=== PATIENT | female | born 2000 | race Two or more races ===

== ENCOUNTER 2024-09-17 09:10 | Emergency (ER) | payer OTHER ==
[~2024-09-17] VITALS: Ht 154.9 cm; Wt 59.9 kg
[2024-09-17] MEDS ORDERED: PRENATA CHEWAB1 EACH PO (09:37)
[2024-09-17] MEDS ORDERED: PEPCID AC10 MG PO (09:37)
[2024-09-17 12:44] LABS: BASO % 0.6 % (0.1-1.2); EOS # 0.22 (0.04-0.54); EOS % 2.1 % (0.7-7.0); HEMATOCRIT 36.8 % (34.1-44.9); HEMOGLOBIN 12.5 g/dL (11.2-15.7); LYMPH # 2.09 (1.18-3.74); LYMPH % 20.1 % (19.3-53.1); MEAN CORPUSCULAR HEMOGLOBIN 29.5 pg (25.6-32.2); MONO # 0.65 (0.24-0.82); MONO % 6.3 % (4.7-12.5); NEUT # 7.32 (1.56-6.13); NEUT % 70.5 % (34.0-71.1); PLATELET COUNT 223 K/uL (163-369); RED BLOOD COUNT 4.24 M/uL (3.93-5.22); RED CELL DISTRIBUTION WIDTH 12.8 % (11.6-14.4)
[2024-09-17 13:31] LABS: ALBUMIN 3.4 gm/dL (3.4-5.0); BILIRUBIN TOTAL 0.26 mg/dL (0.3-1.2); CALCIUM 8.9 mg/dL (8.5-10.1); CREATININE SERUM 0.56 mg/dL (0.55-1.02); GFR 135.37; GLOBULINA 3.7 G/DL (2.4-3.5); POTASSIUM 3.99 mEq/L (3.5-5.1); TOTAL PROTEIN 7.1 gm/dL (6.4-8.2)
[2024-09-17 14:07] LABS: URINE APPEARANCE Turbid; URINE BILIRRUBIN Negative (NEGATIVE); URINE BLOOD Negative; URINE COLOR Yellow; URINE GLUCOSE Negative (NEGATIVE); URINE KETONE Negative (NEGATIVE); URINE LEUKOCYTE Moderate; URINE NITRATE Negative; URINE PROTEIN Trace (NEGATIVE)
[2024-09-17 14:11] LABS: URINE RBC 2.7 uL (0.0-20.8); URINE WBC 184.7 uL (0.0-23.2)
[2024-09-17 14:31] LABS: URINE BACTERIA > 9821.5 uL (0.0-1933)
[2024-09-17 14:34] LABS: URINE CRYSTALS MANY /HPF
[2024-09-17] MEDS ORDERED: CEFTRIAXONE SODIUM 1,000 MG VIAL IM ONE (15:00)
[2024-09-17] MEDS ORDERED: MACROBID 100 M100 MG PO (15:01)
[2024-09-17] MEDS ORDERED: CEFTRIAXONE SODIUM 1,000 MG VIAL ONE (15:10)
[2024-09-17] MEDS ORDERED: LIDOCAINE HCL 1% 10ML VIAL ONE (15:11)
== END 2024-09-17 15:34 | disposition home or self-care (01) ==
LOC: ER 09:10
PROVIDERS: Preventive Medicine Public Health & General Preventive Medicine
DX: N39.0 Urinary tract infection, site not specified (principal); K29.70 Gastritis, unspecified, without bleeding

== ENCOUNTER 2024-10-05 09:23 | Outpatient (CLI) | payer OTHER ==
[~2024-10-05 09:23] MED LIST: MACROBID 100 M100 MG PO; PEPCID AC10 MG PO; PRENATA CHEWAB1 EACH PO
== END 2024-10-05 09:30 | disposition home or self-care (01) ==
LOC: PRENATAL 09:23
PROVIDERS: ATTEND Obstetrics & Gynecology Maternal & Fetal Medicine
DX: O36.80X0 Pregnancy with inconclusive fetal viability, not applicable or unspecified (principal); Z36.82 Encounter for antenatal screening for nuchal translucency; Z14.8 Genetic carrier of other disease; Z3A.13 13 weeks gestation of pregnancy

== ENCOUNTER 2024-12-14 10:44 | Outpatient (CLI) | payer OTHER | END 2024-12-14 10:45 | disposition home or self-care (01) | LOC: PRENATAL 10:44 | PROVIDERS: ATTEND Obstetrics & Gynecology Maternal & Fetal Medicine | DX: O26.849 Uterine size-date discrepancy, unspecified trimester (principal); O44.00 Complete placenta previa NOS or without hemorrhage, unspecified trimester; O43.90 Unspecified placental disorder, unspecified trimester; O26.879 Cervical shortening, unspecified trimester ==

== ENCOUNTER 2025-01-16 07:35 | Outpatient (CLI) | payer OTHER | END 2025-01-16 07:42 | disposition home or self-care (01) | LOC: PRENATAL 07:35 | PROVIDERS: ATTEND Obstetrics & Gynecology Maternal & Fetal Medicine | DX: O26.849 Uterine size-date discrepancy, unspecified trimester (principal); O44.00 Complete placenta previa NOS or without hemorrhage, unspecified trimester; O43.90 Unspecified placental disorder, unspecified trimester; Z3A.29 29 weeks gestation of pregnancy ==

== ENCOUNTER 2025-01-29 20:05 | Inpatient (IN) | payer OTHER ==
[~2025-01-29] VITALS: Ht 152.4 cm; Wt 67.1 kg
[2025-01-29] MEDS ORDERED: RINGERS SOLUTION,LACTATED 1,000 ML IV SCH (20:15)
[2025-01-29 20:43] VITALS: BP 104/67
[2025-01-29 23:27] LABS: URINE APPEARANCE Cloudy; URINE BILIRRUBIN Negative (NEGATIVE); URINE BLOOD Large; URINE COLOR Yellow; URINE GLUCOSE Negative (NEGATIVE); URINE KETONE Negative (NEGATIVE); URINE LEUKOCYTE Large; URINE NITRATE Negative; URINE PROTEIN Negative (NEGATIVE); URINE UROBILINOGEN 0.2 E.U./dl
[2025-01-29 23:30] LABS: URINE EPITHELIAL CELLS 110.6 uL (0.0-38.8); URINE RBC 25.3 uL (0.0-20.8); URINE WBC 1326.6 uL (0.0-23.2)
[2025-01-29 23:35] VITALS: BP 101/66; O2SAT 100
[2025-01-29 23:42] LABS: URINE CAST 0.58 uL (0.0-1.40)
[2025-01-30] VITALS (7 sets, daily range): BP systolic 94–111; BP diastolic 63–70; O2SAT 97–100
[2025-01-30 00:05] LABS: BASO % 0.3 % (0.1-1.2); EOS # 0.27 (0.04-0.54); EOS % 2.6 % (0.7-7.0); LYMPH # 2.14 (1.18-3.74); LYMPH % 20.3 % (19.3-53.1); MEAN PLATELET VOLUME 11.20 fl (9.4-12.4); MONO # 0.78 (0.24-0.82); MONO % 7.4 % (4.7-12.5); NEUT # 7.25 (1.56-6.13); NEUT % 68.8 % (34.0-71.1); RED CELL DISTRIBUTION WIDTH 11.9 % (11.6-14.4)
[2025-01-30] MEDS ORDERED: BETAMETHASONE ACETATE,SOD PHOS 30 MG/5 ML ML IM SCH (00:23)
[2025-01-30] MEDS ORDERED: RINGERS SOLUTION,LACTATED 1,000 ML IV SCH (00:30)
[2025-01-30] MEDS ORDERED: INDOMETHACIN 50 MG CAPSULE PO SCH ×2 (00:34→08:00)
[2025-01-30 00:35] LABS: ALT/SGPT 13.0 U/L (12-78); AST/SGOT 12.0 U/L (15-37); BILIRUBIN TOTAL 0.18 mg/dL (0.3-1.2); BUN CREA RATIO 14.0 (7.0-25.0); CREATININE SERUM 0.59 mg/dL (0.55-1.02); GFR 127.46; GLOBULINA 3.0 G/DL (2.4-3.5); GLUCOSE FASTING 91.0 mg/dL (65-100); OSMOLALITY SERUM 279.0 MOSM/KG (275-295)
[2025-01-30] MEDS ORDERED: MAGNESIUM SULFATE IN WATER 100 ML IV ONE (00:45)
[2025-01-30 01:37] LABS: INR 0.94
[2025-01-30] MEDS ORDERED: AMPICILLIN SODIUM 2,000 MG VIAL IV SCH (01:45)
[2025-01-30] MEDS ORDERED: PNV,CALCIUM 72/IRON/FOLIC ACID 1 TAB TABLET PO SCH (09:00)
[2025-01-30] MEDS ORDERED: SOD FERRIC GLUC COMPLX/SUCROSE 125 MG in 0.9 % SODIUM CHLORIDE 100 ML IV SCH (12:00)
[2025-01-30] MEDS ORDERED: FAMOTIDINE/PF 20 MG/2 ML VIAL IV SCH (17:29)
[2025-01-31] MEDS ORDERED: BETAMETHASONE ACETATE,SOD PHOS 30 MG/5 ML ML IM SCH
[2025-01-31 04:25] VITALS: BP 92/56
[2025-01-31 06:27] VITALS: BP 93/59; O2SAT 98
[2025-01-31 15:24] VITALS: BP 90/55
[2025-01-31 19:52] VITALS: BP 101/71
[2025-01-31] MEDS ORDERED: CEPHALEXIN500 MG PO (21:56)
[2025-02-01] MEDS ORDERED: IBU800 MG PO (16:12)
== END 2025-01-31 21:34 | disposition home or self-care (01) | DRG 832 ==
LOC: OBS/DEL 20:05 → LDR 01-30 01:32
PROVIDERS: ADMIT General Practice; ATTEND General Practice
PROC: BY4FZZZ Ultrasonography of Third Trimester, Single Fetus (ICD-10-PCS; principal; 2025-01-30)
PROC: BU4CZZZ Ultrasonography of Uterus and Ovaries (ICD-10-PCS; 2025-01-30)
PROC: 4A1HXCZ Monitoring of Products of Conception, Cardiac Rate, External Approach (ICD-10-PCS; 2025-01-30)
DX: O60.03 Preterm labor without delivery, third trimester (principal); O23.43 Unspecified infection of urinary tract in pregnancy, third trimester; O26.873 Cervical shortening, third trimester; O26.843 Uterine size-date discrepancy, third trimester; O36.8130 Decreased fetal movements, third trimester, not applicable or unspecified; O43.93 Unspecified placental disorder, third trimester; Z3A.30 30 weeks gestation of pregnancy; O99.013 Anemia complicating pregnancy, third trimester; D64.9 Anemia, unspecified

== ENCOUNTER 2025-02-13 15:46 | Outpatient (CLI) | payer OTHER ==
[~2025-02-13 15:46] MED LIST changes: +CEPHALEXIN500 MG PO; +IBU800 MG PO
[2025-02-13] MEDS ORDERED: ONDANSETRON HCL 2 MG/ML VIAL IV ONE (16:00)
[2025-02-13] MEDS ORDERED: 0.9 % SODIUM CHLORIDE 1,000 ML IV SCH (16:00)
[2025-02-13] MEDS ORDERED: FAMOTIDINE/PF 20 MG/2 ML VIAL IV PUSH ONE (16:00)
[2025-02-13 16:19] VITALS: BP 92/59
[2025-02-13 17:17] LABS: URINE APPEARANCE Turbid; URINE BILIRRUBIN Negative (NEGATIVE); URINE BLOOD Negative; URINE COLOR Dark Yellow; URINE GLUCOSE Negative (NEGATIVE); URINE KETONE Trace (NEGATIVE); URINE LEUKOCYTE Large; URINE NITRATE Negative; URINE PROTEIN 30 (NEGATIVE); URINE UROBILINOGEN 1.0 E.U./dl
[2025-02-13 17:19] LABS: BASO % 0.2 % (0.1-1.2); EOS # 0.13 (0.04-0.54); EOS % 1.5 % (0.7-7.0); LYMPH # 1.43 (1.18-3.74); LYMPH % 16.3 % (19.3-53.1); MEAN PLATELET VOLUME 10.70 fl (9.4-12.4); MONO # 0.63 (0.24-0.82); MONO % 7.2 % (4.7-12.5); NEUT # 6.48 (1.56-6.13); NEUT % 74.0 % (34.0-71.1); RED CELL DISTRIBUTION WIDTH 12.2 % (11.6-14.4)
[2025-02-13 17:22] LABS: URINE EPITHELIAL CELLS 164.3 uL (0.0-38.8); URINE RBC 137.4 uL (0.0-20.8); URINE WBC 315.2 uL (0.0-23.2)
[2025-02-13 17:34] LABS: COVID-19 AG NEGATIVE (NEGATIVE)
[2025-02-13 17:48] LABS: URINE BACTERIA > 9821.5 uL (0.0-1933); URINE CAST 0.14 uL (0.0-1.40)
[2025-02-13 17:49] LABS: ALT/SGPT 13.0 U/L (12-78); AST/SGOT 11.0 U/L (15-37); BILIRUBIN TOTAL 0.26 mg/dL (0.3-1.2); BUN CREA RATIO 13.0 (7.0-25.0); CREATININE SERUM 0.55 mg/dL (0.55-1.02); GFR 138.21; GLOBULINA 2.9 G/DL (2.4-3.5); GLUCOSE FASTING 110.0 mg/dL (65-100); OSMOLALITY SERUM 274.0 MOSM/KG (275-295); TYPE CELLS SQUAMOUS; URINE CRYSTALS FEW /HPF; URINE MUCUS SCANT
[2025-02-13] MEDS ORDERED: FAMOTIDINE/PF 20 MG/2 ML VIAL IV PUSH NR (18:30)
[2025-02-13 19:25] VITALS: BP 108/67
[2025-02-13 20:49] VITALS: BP 108/67
== END 2025-02-13 20:26 | disposition home or self-care (01) ==
LOC: OBS/DEL 15:46
PROVIDERS: ATTEND General Practice
DX: O60.03 Preterm labor without delivery, third trimester (principal); Z3A.32 32 weeks gestation of pregnancy

== ENCOUNTER 2025-03-18 16:05 | Inpatient (IN) | payer OTHER ==
[~2025-03-18] VITALS: Ht 154.9 cm; Wt 68.5 kg
[2025-03-18 15:40] VITALS: BP 110/77
[2025-03-18] MEDS ORDERED: PEPCID AC20 MG PO (16:12)
[2025-03-18] MEDS ORDERED: OXYTOCIN 500 ML IV ONE (16:30)
[2025-03-18] MEDS ORDERED: RINGERS SOLUTION,LACTATED 1,000 ML IV SCH (16:30)
[2025-03-18 16:56] LABS: BASO % 0.3 % (0.1-1.2); EOS # 0.18 (0.04-0.54); EOS % 1.8 % (0.7-7.0); LYMPH # 1.62 (1.18-3.74); LYMPH % 16.3 % (19.3-53.1); MEAN PLATELET VOLUME 11.20 fl (9.4-12.4); MONO # 0.50 (0.24-0.82); MONO % 5.0 % (4.7-12.5); NEUT # 7.54 (1.56-6.13); NEUT % 75.9 % (34.0-71.1); RED CELL DISTRIBUTION WIDTH 13.1 % (11.6-14.4); URINE APPEARANCE Cloudy; URINE BILIRRUBIN Negative (NEGATIVE); URINE BLOOD Negative; URINE COLOR Yellow; URINE GLUCOSE Negative (NEGATIVE); URINE KETONE Negative (NEGATIVE); URINE LEUKOCYTE Large; URINE NITRATE Negative; URINE PROTEIN Negative (NEGATIVE); URINE UROBILINOGEN 0.2 E.U./dl
[2025-03-18 16:57] LABS: URINE BACTERIA 6026.2 uL (0.0-1933); URINE EPITHELIAL CELLS 101.3 uL (0.0-38.8); URINE RBC 4.1 uL (0.0-20.8); URINE WBC 242.3 uL (0.0-23.2)
[2025-03-18 17:18] LABS: BUN CREA RATIO 11.0 (7.0-25.0); CREATININE SERUM 0.72 mg/dL (0.55-1.02); GFR 100.38; GLUCOSE FASTING 131.0 mg/dL (65-100); INR 0.94; OSMOLALITY SERUM 276.0 MOSM/KG (275-295)
[2025-03-18 17:28] LABS: TYPE CELLS RENAL TUBULAR; URINE CAST 0.14 uL (0.0-1.40); URINE CRYSTALS FEW /HPF; URINE YEAST FEW /hpf
[2025-03-18] MEDS ORDERED: MORPHINE SULFATE 4 MG/ML CARTRIDGE IV ONE (19:30)
[2025-03-18] MEDS ORDERED: PROMETHAZINE HCL 25 MG/ML AMPUL IV NR (19:30)
[2025-03-18 21:14] VITALS: BP 121/68
[2025-03-18 21:15] VITALS: BP 116/65
[2025-03-18] MEDS ORDERED: CHLORHEXIDINE GLUCONATE 120 ML BOTTLE TP SCH (21:15)
[2025-03-18] MEDS ORDERED: OXYTOCIN 1,000 ML IV SCH (21:15)
[2025-03-18] MEDS ORDERED: PNV,CALCIUM 72/IRON/FOLIC ACID 1 TAB TABLET PO SCH (21:16)
[2025-03-18 21:30] VITALS: BP 123/75
[2025-03-18 21:51] VITALS: BP 122/75
[2025-03-18 23:40] VITALS: BP 116/73
[2025-03-19 00:03] VITALS: BP 118/72
[2025-03-19 03:06] LABS: BASO % 0.2 % (0.1-1.2); EOS # 0.02 (0.04-0.54); EOS % 0.1 % (0.7-7.0); LYMPH # 1.71 (1.18-3.74); LYMPH % 7.8 % (19.3-53.1); MEAN PLATELET VOLUME 11.30 fl (9.4-12.4); MONO # 0.92 (0.24-0.82); MONO % 4.2 % (4.7-12.5); NEUT # 19.05 (1.56-6.13); NEUT % 87.2 % (34.0-71.1); RED CELL DISTRIBUTION WIDTH 12.9 % (11.6-14.4)
[2025-03-19 08:45] VITALS: BP 100/60
[2025-03-19 13:31] VITALS: BP 116/78
[2025-03-19 16:08] VITALS: BP 108/62
[2025-03-20 00:53] VITALS: BP 99/62
[2025-03-20 09:22] VITALS: BP 108/71
[2025-03-20 16:00] VITALS: BP 108/80
[2025-03-20] MEDS ORDERED: PRENATE ENHANC1 EACH PO (18:09)
== END 2025-03-20 18:50 | disposition home or self-care (01) | DRG 807 ==
LOC: LDR 16:05 → OB/GYN 16:05
PROVIDERS: ADMIT General Practice; ATTEND General Practice
PROC: 10E0XZZ Delivery of Products of Conception, External Approach (ICD-10-PCS; principal; 2025-03-18)
PROC: 0W8NXZZ Division of Female Perineum, External Approach (ICD-10-PCS; 2025-03-18)
PROC: 4A1HXCZ Monitoring of Products of Conception, Cardiac Rate, External Approach (ICD-10-PCS; 2025-03-18)
DX: O80 Encounter for full-term uncomplicated delivery (principal); Z37.0 Single live birth; Z3A.37 37 weeks gestation of pregnancy